=== PATIENT | male | born 1975 | race Caucasian/White ===

== ENCOUNTER 2024-04-09 11:28 | Emergency (ER) | payer OTHER ==
[2024-04-09] MEDS ORDERED: ALBUTEROL 2.5 MG/3 ML NEB SOL ONE (11:47)
[2024-04-09] MEDS ORDERED: IPRATROPIUM BROM 0.5MG/2.5ML ONE (11:47)
[2024-04-09] MEDS ORDERED: METHYLPREDNISOLONE 125 MG INJ ONE (11:47)
[2024-04-09] MEDS ORDERED: MAGNESIUM SULFATE 1 gm IVPB 1 GM/100 ML BAG IV ONE ×2 (11:48→19:27)
[2024-04-09 12:11] LABS: Absolute Basophils 0.1 K/uL (0-0.5); Absolute Eosinophils 0.4 K/uL (0-0.5); Absolute Lymphocytes (CBC) 1.6 K/uL (0.7-4.9); Absolute Monocytes 0.8 K/uL (0.1-1.3); Absolute Neutrophil 8.3 K/uL (1.8-8.0); Basophils % 0.8 % (0-1.3); Eosinophils % 3.3 % (0-4.4); Hematocrit 41.2 % (39.6-49.0); Hemoglobin 13.9 g/dL (13.6-17.9); Lymphocytes % 14.7 % (15.3-44.8); MCH 29.1 pg (27.0-35.0); MCHC 33.8 g/dL (32.0-36.0); MCV 86.1 fL (80-100); MPV 8.1 fL (7.6-11.3); Monocytes % 6.9 % (3.3-12.3); Neutrophils % 74.3 % (41.7-73.7); Nucleated Red Blood Cells % 0.1 % (0-0); Platelets 293 thou/uL (152-406); RBC Red Blood Cell Count 4.79 M/uL (4.33-5.43); Red Cell Distribution Width 14.3 % (12.1-15.2)
[2024-04-09 12:28] LABS: ALT/SGPT 51 U/L (16-61); AST/SGOT 35 U/L (15-37); Albumin 3.2 g/dL (3.4-5.0); Albumin/Globulin Ratio 0.8 (1.1-1.8); Alkaline Phosphatase 117 U/L (45-117); Anion Gap 7.5 mEq/L (5.0-15.0); BUN Blood Urea Nitrogen 10 mg/dL (7-18); Bicarbonate 24 mEq/L (21-32); Bilirubin Total 0.3 mg/dL (0.2-1.0); Globulin 3.9 g/dL (2.3-3.5); Glomerular Filtration Rate 87 ml/min (=/>90); Glucose Level 142 mg/dL (74-106); Magnesium 2.1 mg/dL (1.6-2.4); NT PRO-BNP 50 pg/mL (<125); Potassium 3.5 mEq/L (3.5-5.1); Protein, Total 7.1 g/dL (6.4-8.2); Sodium Level 138 mEq/L (136-145)
[2024-04-09 12:29] LABS: Bilirubin Direct < 0.2 mg/dL (0-0.2); Bilirubin Indirect, Calculated 0.1 mg/dL (0.2-0.8); Troponin High Sensitivity < 3.0 pg/mL (<58.9)
--- NOTE | 2024-04-09 13:34 | RAD REPORT ---
EXAMINATION: ONE VIEW CHEST XR CLINICAL INDICATION: SOB TECHNIQUE: Frontal chest projection is submitted. Examination is limited by patient positioning and t echnique. COMPARISON: No prior exam. FINDINGS: Innumerable nodular densities are seen in both lungs compatible with a miliary pattern. This can be d ue to infection or neoplasm/metastatic disease. The heart is normal in size. No displaced fractures identified. No prior studies are available at this institution for comparison.
[2024-04-09] MEDS ORDERED: LEVALBUTEROL 1.25 MG/3 ML NEB ONE ×2 (14:10→19:26)
[2024-04-09] MEDS ORDERED: LORazepam 2 MG/ML VIAL ONE (14:10)
--- NOTE | 2024-04-09 15:22 | RAD REPORT ---
EXAM: CT CHEST WITH CONTRAST CLINICAL INDICATION: dyspnea, abnormal CXR TECHNIQUE: Routine CT scan of the chest with intravenous contrast. One or more of the following dose reduction techniques were used: Automated exposure control, adjustment of the mA and/or kV according to patient size, and/or iterative reconstruction. Unless otherwise specified, incidental fi ndings do not require dedicated imaging follow-up. COMPARISON: Recent chest film reviewed FINDINGS: LUNGS: Innumerable nodules are present bilaterally of varying size in a miliary pattern. Most likely this is related to metastatic disease. Small area of groundglass opacity seen in left upper lobe anteriorly potentially alveolitis. PLEURA: No pleural effusion. No pneumothorax. MEDIASTINUM AND LYMPH NODES: No mediastinal mass or fluid collection. Normal size mediastinal, hilar, and axillary lymph nodes. OSSEOUS STRUCTURES AND CHEST WALL: Intact. UPPER ABDOMEN: Irregular pancreatic ductal dilatation partially visualized. IMPRESSION: Innumerable pulmonary nodules of varying size bilaterally distributed throughout both lungs in a tamir mahendra pattern. This would favor metastatic disease or less likely infection. Irregular pancreatic ductal dilatation noted, partially imaged. Recommend MRI/MRCP of the abdomen for further evaluation.
--- NOTE | 2024-04-09 15:51 | EDPHYS ---
Physician Documentation [facility] Name: Andriy Solis Age: 48 yrs Sex: Male : 1975 Arrival Date: 04/09/2024 Time: 11:28 Bed IW10 Private MD: ED Physician Bacilio Gottlieb HPI: 04/09 11:39 This 48 yrs old Male presents to ER via Ambulatory with complaints of Breathing sb4 Difficulty. 11:39 Patient reports progressively worsening shortness of breath x 3 weeks. He does have a sb4 history of asthma and has been using his inhaler consistently. States that he usually gets bronchitis once a year. Also reports cough. Denies any fever, chills, nausea, vomiting, sore throat, sinus congestion. 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 - Infectious Disease History:: Denies. - Social history:: Smoking status: Patient reports the use of cigarette tobacco products, smokes two packs cigarettes per day. ROS: 11:39 Constitutional: Negative for fever, chills, and weight loss, sb4 11:39 Respiratory: Positive for cough, shortness of breath, wheezing, 11:39 All other systems are negative, Exam: 11:39 Head/Face: Normocephalic, atraumatic. Eyes: Extra-ocular motions intact. Periorbital sb4 areas with no swelling, redness, or edema. ENT: Mucous membranes moist. Skin: Warm, dry with normal turgor. Normal color with no rashes, no lesions, and no evidence of cellulitis. 11:39 Constitutional: The patient appears alert, awake, uncomfortable, 11:39 Cardiovascular: Rate: tachycardic, Rhythm: regular, 11:39 Respiratory: the patient does not display signs of respiratory distress, Respirations: normal, Breath sounds: wheezing: inspiratory expiratory is scattered, Vital Signs: 11:36 BP 136 / 92; Pulse 111; Resp 20; Temp 98.4(O); Pulse Ox 100% on R/A; Weight 78.47 kg; ss Height 6 ft. 1 in. ; Pain 0/10; 13:00 BP 128 / 74; Pulse 102; Resp 20; Pulse Ox 98% on R/A; kj2 14:15 BP 126 / 100; Pulse 118; Resp 22; Pulse Ox 99% on R/A; kj2 17:40 BP 112 / 74; Pulse 104; Resp 20; Pulse Ox 98% ; kj2 20:00 BP 116 / 76; Pulse 107; Resp 20; Pulse Ox 100% on R/A; kj2 11:36 Body Mass Index 22.82 (78.47 kg, 185.42 cm) ss 11:36 Pain Scale: Adult ss MDM: 11:31 Medical Screening Exam initiated sb4 15:55 Antibiotic administration: Rocephin and Zithromax given. Data reviewed: vital signs, sb4 nurses notes, lab test result(s), EKG, radiologic studies, I have discussed the patient's presentation/case with the attending Emergency Department Physician; and as a result, I will administer antibiotics. Counseling: I had a detailed discussion with the patient and/or guardian regarding the historical points, exam findings, and any diagnostic results supporting the discharge/admit diagnosis, the presence of at least one elevated blood pressure reading (>120/80) during this emergency department visit, lab results, radiology results, the need to transfer to another facility, [facility] does not immediately have the required specialist. ED course: Patient's chest imaging is concerning for atypical pneumonia versus metastatic disease. He is still wheezing after 2 breathing treatments, Solu-Medrol, and magnesium. We do not currently have pulmonology on-call. CT also showed irregular pancreatic ductal dilatation and recommended MRCP which is not currently available. Will transfer to [facility] for higher level of care. 04/09 11:37 Order name: Basic Metabolic Panel; Complete Time: 12:30 sb4 04/09 11:37 Order name: CBC with Diff; Complete Time: 12:16 sb4 04/09 11:37 Order name: LFT's; Complete Time: 12:30 sb4 04/09 11:37 Order name: Magnesium; Complete Time: 12:30 sb4 04/09 11:37 Order name: NT PRO-BNP; Complete Time: 12:30 sb4 04/09 11:37 Order name: Troponin HS; Complete Time: 12:30 sb4 04/09 15:47 Order name: Blood Culture Adult (2) sb4 04/09 15:47 Order name: Lactate w/ 2H reflex if indic.; Complete Time: 08:51 sb4 04/09 15:47 Order name: Ptt, Activated; Complete Time: 08:51 sb4 04/09 15:47 Order name: PT-INR; Complete Time: 08:51 sb4 04/09 16:00 Order name: SARS RAPID; Complete Time: 08:51 eb 04/09 16:21 Order name: Flu; Complete Time: 08:51 sb4 04/09 16:21 Order name: Strep sb4 04/09 18:13 Order name: Ghost Lactate-NO COLLECT Timer; Complete Time: 08:51 EDMS 04/09 19:16 Order name: ABG peggy 04/09 11:37 Order name: XRAY Chest (1 view); Complete Time: 13:34 sb4 04/09 13:47 Order name: CT Chest W/ Con; Complete Time: 15:23 sb4 04/09 11:37 Order name: Cardiac monitoring; Complete Time: 12:02 sb4 04/09 11:37 Order name: EKG - Nurse/Tech; Complete Time: 12:02 sb4 04/09 11:37 Order name: IV Saline Lock; Complete Time: 12:02 sb4 04/09 11:37 Order name: Labs collected and sent; Complete Time: 12:02 sb4 04/09 11:37 Order name: O2 Per Protocol; Complete Time: 11:40 sb4 04/09 11:37 Order name: O2 Sat Monitoring; Complete Time: 11:40 sb4 04/09 16:26 Order name: Airborne Precautions; Complete Time: 16:30 sb4 EC:46 Rate is 103 beats/min. Rhythm is regular, Sinus tachycardia. [place] interval is normal at sb4 146 msec. QRS interval is normal at 78 msec. QT interval is normal at 360 msec. No Q waves. T waves are Normal. No ST changes noted. Clinical impression: Sinus tachycardia. Interpreted by me. Reviewed by me. Administered Medications: 12:02 Drug: DuoNeb Nebulize (3:1) (2.5 mg - 0.5 mg) 3 ml Nebulizer once Route: Nebulizer; kc6 12:02 Drug: MethylPrednisoLONE IVP 125 mg IVP once Route: IVP; Site: right antecubital; kc6 12:02 Drug: Magnesium Sulfate IVPB 1 grams IVPB once over 1 hrs Route: IVPB; Infused Over: 1 kc6 hrs; Site: right antecubital; 14:13 Drug: Ativan IVP 0.5 mg IVP once Route: IVP; Site: right antecubital; kj2 14:14 Drug: Levalbuterol Inhalation 1.25 mg Inhalation once Route: Inhalation; kj2 17:35 Drug: AZITHromycin IVPB 500 mg IVPB once over 1 hrs; (mix in 250 mL NS) Route: IVPB; kj2 Infused Over: 1 hrs; Site: right antecubital; 21:02 Follow up: IV Status: Completed infusion; IV Intake: 250ml kj2 17:36 Drug: Rocephin IV 1 grams IV at calculated rate once; Given slow IV push per pharmacy kj2 instructions Route: IV; Rate: calculated rate; Site: right antecubital; 21:02 Follow up: IV Status: Completed infusion; IV Intake: 10ml kj2 21:03 Follow up: Response: No adverse reaction kj2 19:58 Drug: Magnesium Sulfate IVPB 1 grams IVPB once over 1 hrs Route: IVPB; Infused Over: 1 kj2 hrs; Site: right antecubital; 21:01 Follow up: IV Status: Completed infusion; IV Intake: 100ml kj2 19:58 Drug: Levalbuterol Inhalation 2.5 mg Inhalation once Route: Inhalation; kj2 21:01 Follow up: Response: No adverse reaction kj2 Disposition: 04/10 09:44 Co-signature as Attending Physician, Bacilio Gottlieb MD I reviewed the patient's care rn provided by the Advanced Practice Provider and agree with the diagnosis and treatment plan. Disposition Summary: 04/09/24 15:50 Transfer Ordered Notes: Transfer Location: [facility] sb4 Reason: Higher level of care sb4 Condition: Fair sb4 Problem: new sb4 Symptoms: are unchanged sb4 Accepting Physician: Dr. Mazariegos(04/10/24 00:42) kj2 Diagnosis - Atypical pneumonia sb4 - Dyspnea sb4 Forms: - Medication Reconciliation Form sb4 - SBAR form sb4 Signatures: Dispatcher [employer] Marcel Urrutia MD MD cha Nieto, Roman, MD MD rn Blanchard, Enriqueta, RN RN ss Masha Rivera RN RN kc6 Michelle Mayfield PA-C PASilvino sb4 Anusha Drake RN RN kj2 Corrections: (The following items were deleted from the chart) 04/09 15:47 15:47 BLOOD CULTURE*+BA.LAB.BRZ ordered. EDMS EDMS 15:47 15:47 LACTATE+C.LAB.BRZ ordered. EDMS EDMS 15:47 15:47 PTT, ACTIVATED+COAG.LAB.BRZ ordered. EDMS EDMS 15:47 15:47 PROTIME (+INR)+COAG.LAB.BRZ ordered. EDMS EDMS 16:27 15:50 hospitalist sb4 sb4 04/10 00:42 04/09 16:27 Dr. Mazariegos sb4 kj2
--- NOTE | 2024-04-09 15:51 | ER ---
Nurse's Notes [facility] Name: Andriy Solis Age: 48 yrs Sex: Male : 1975 Arrival Date: 04/09/2024 Time: 11:28 Bed IW10 Private MD: Diagnosis: Atypical pneumonia;Dyspnea Presentation: 04/09 11:36 Chief complaint: Patient states: cough and shortness of breath x weeks. HX of asthma. ss Coronavirus screen: Client denies travel out of the [place] in the last 14 days. Ebola Screen: Patient denies exposure to infectious person. Patient denies travel to an Ebola-affected area in the 21 days before illness onset. Initial Sepsis Screen: Does the patient meet any 2 criteria? No. Patient's initial sepsis screen is negative. Does the patient have a suspected source of infection? No. Patient's initial sepsis screen is negative. Risk Assessment: Do you want to hurt yourself or someone else? Patient reports no desire to harm self or others. Onset of symptoms is unknown. 11:36 Method Of Arrival: Ambulatory ss 11:36 Acuity: TORIE 3 ss Triage Assessment: 12:15 General: Appears in no apparent distress. Behavior is calm, cooperative. Respiratory: kj2 Onset: The symptoms/episode began/occurred x >3 days. 13:21 Respiratory: Reports shortness of breath at rest the patient has mild shortness of kj2 breath. 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 - Infectious Disease History:: Denies. - Social history:: Smoking status: Patient reports the use of cigarette tobacco products, smokes two packs cigarettes per day. Screenin:03 [facility] ED Fall Risk Assessment (Adult) History of falling in the last 3 months, kc6 including since admission No falls in past 3 months (0 pts) Confusion or Disorientation No (0 pts) Intoxicated or Sedated No (0 pts) Impaired Gait No (0 pts) Mobility Assist Device Used No (0 pt) Altered Elimination No (0 pt) Score/Fall Risk Level 0 - 2 = Low Risk Oriented to surroundings, Maintained a safe environment, Educated pt \\T\\ family on fall prevention, incl call for assistance when getting out of bed. Abuse screen: Denies threats or abuse. Denies injuries from another. Nutritional screening: No deficits noted. Tuberculosis screening: No symptoms or risk factors identified. Assessment: 12:00 General: Appears in no apparent distress. Behavior is calm, cooperative. Pain: Denies kj2 pain. Neuro: Level of Consciousness is awake, alert, Oriented to person, place, time, situation. Cardiovascular: Patient's skin is warm and dry. Respiratory: Airway is patent Respiratory effort is unlabored. GI: No signs and/or symptoms were reported involving the gastrointestinal system. : No signs and/or symptoms were reported regarding the genitourinary system. 12:15 Reassessment: Patient appears in no apparent distress at this time. Patient and/or kj2 family updated on plan of care and expected duration. Pain level reassessed. Patient is alert, oriented x 3, equal unlabored respirations, skin warm/dry/pink. Cardiovascular: Rhythm is sinus rhythm. Respiratory: Reports shortness of breath at rest Breath sounds are clear bilaterally. 13:00 Reassessment: Patient appears in no apparent distress at this time. Patient and/or kj2 family updated on plan of care and expected duration. Pain level reassessed. Patient is alert, oriented x 3, equal unlabored respirations, skin warm/dry/pink. 14:00 Reassessment: Patient appears in no apparent distress at this time. Patient and/or kj2 family updated on plan of care and expected duration. Pain level reassessed. Patient is alert, oriented x 3, equal unlabored respirations, skin warm/dry/pink. 16:39 Reassessment: cultures on hold as advised by provider. kj2 17:39 Reassessment: Patient appears in no apparent distress at this time. Patient and/or kj2 family updated on plan of care and expected duration. Pain level reassessed. Patient is alert, oriented x 3, equal unlabored respirations, skin warm/dry/pink. 19:16 Reassessment: pt and family tell this nurse, "I've been here for 7hrs, I haven't eaten, kc6 and I'm still SOB and if I'm not out of here within the next hour I'm going to leave. primary RN and Dr. Guzman made aware. per pt is ok to eat. 19:29 Reassessment: patient request to start neb treatment after eating. kj2 19:59 Reassessment: Patient appears in no apparent distress at this time. Patient and/or kj2 family updated on plan of care and expected duration. Pain level reassessed. Patient is alert, oriented x 3, equal unlabored respirations, skin warm/dry/pink. 20:49 Reassessment: Patient appears in no apparent distress at this time. Patient and/or kj2 family updated on plan of care and expected duration. Pain level reassessed. Patient is alert, oriented x 3, equal unlabored respirations, skin warm/dry/pink. 21:01 Reassessment: 2049 report given. kj2 Vital Signs: 11:36 BP 136 / 92; Pulse 111; Resp 20; Temp 98.4(O); Pulse Ox 100% on R/A; Weight 78.47 kg; ss Height 6 ft. 1 in. ; Pain 0/10; 13:00 BP 128 / 74; Pulse 102; Resp 20; Pulse Ox 98% on R/A; kj2 14:15 BP 126 / 100; Pulse 118; Resp 22; Pulse Ox 99% on R/A; kj2 17:40 BP 112 / 74; Pulse 104; Resp 20; Pulse Ox 98% ; kj2 20:00 BP 116 / 76; Pulse 107; Resp 20; Pulse Ox 100% on R/A; kj2 11:36 Body Mass Index 22.82 (78.47 kg, 185.42 cm) ss 11:36 Pain Scale: Adult ss ED Course: 11:30 Patient arrived in ED. ra3 11:30 Michelle Mayfield PA-C is PHCP. sb4 11:31 Bacilio Gottlieb MD is Attending Physician. sb4 11:38 Triage completed. ss 11:38 Arm band placed on right wrist. ss 11:40 Masha Rivera, VALERIA is Primary Nurse. kc6 12:03 Patient has correct armband on for positive identification. Bed in low position. Call kc6 light in reach. Side rails up X 1. Adult w/ patient. school bus monitor on. Pulse ox on. NIBP on. Door closed. Noise minimized. Lights dimmed. Pillow given. 12:03 Inserted saline lock: 20 gauge in right antecubital area, using aseptic technique. kc6 Blood collected. Flushed with 10 mL NS. Patient maintains SpO2 saturation greater than 95% on room air. 13:24 XRAY Chest (1 view) In Process Unspecified. EDMS 15:15 CT Chest W/ Con In Process Unspecified. EDMS 15:58 initiated a transfer with Anthony from the [facility] Transfer [place]. eb 16:[address] Mazariegos the hospitalist document control manager for [facility] with Michelle Archuleta for eb patient transfer consultation. 17:36 Blood Culture Adult (2) Sent. kj2 17:36 Lactate w/ 2H reflex if indic. Sent. kj2 17:36 PT-INR Sent. kj2 17:36 Ptt, Activated Sent. kj2 17:42 Per Anthony at the [facility]/ they are still moving patients around / the hospitalist would like the patient placed into an airborne isolation room. 19:21 Diet: Patient given a regular meal tray. Tolerated well. ha1 19:[address] Mazariegos to [facility] Rm [id number]. Report [phone]. rv1 20:30 Anusha SHAW having difficulty calling report. Transfer center notified. rv1 21:00 Gerri with [facility] gave 15-20 ETA. rv1 21:00 No provider procedures requiring assistance completed. kj2 21:30 Provided Education on: need for transfer. kj2 21:30 Patient transferred, IV remains in place. kj2 Administered Medications: 12:02 Drug: DuoNeb Nebulize (3:1) (2.5 mg - 0.5 mg) 3 ml Nebulizer once Route: Nebulizer; kc6 12:02 Drug: MethylPrednisoLONE IVP 125 mg IVP once Route: IVP; Site: right antecubital; kc6 12:02 Drug: Magnesium Sulfate IVPB 1 grams IVPB once over 1 hrs Route: IVPB; Infused Over: 1 kc6 hrs; Site: right antecubital; 14:13 Drug: Ativan IVP 0.5 mg IVP once Route: IVP; Site: right antecubital; kj2 14:14 Drug: Levalbuterol Inhalation 1.25 mg Inhalation once Route: Inhalation; kj2 17:35 Drug: AZITHromycin IVPB 500 mg IVPB once over 1 hrs; (mix in 250 mL NS) Route: IVPB; kj2 Infused Over: 1 hrs; Site: right antecubital; 21:02 Follow up: IV Status: Completed infusion; IV Intake: 250ml kj2 17:36 Drug: Rocephin IV 1 grams IV at calculated rate once; Given slow IV push per pharmacy kj2 instructions Route: IV; Rate: calculated rate; Site: right antecubital; 21:02 Follow up: IV Status: Completed infusion; IV Intake: 10ml kj2 21:03 Follow up: Response: No adverse reaction kj2 19:58 Drug: Magnesium Sulfate IVPB 1 grams IVPB once over 1 hrs Route: IVPB; Infused Over: 1 kj2 hrs; Site: right antecubital; 21:01 Follow up: IV Status: Completed infusion; IV Intake: 100ml kj2 19:58 Drug: Levalbuterol Inhalation 2.5 mg Inhalation once Route: Inhalation; kj2 21:01 Follow up: Response: No adverse reaction kj2 Medication: 12:15 VIS not applicable for this client. kj2 Intake: 21:01 IV: 100ml; Total: 100ml. kj2 21:02 IV: 250ml; Total: 350ml. kj2 21:02 IV: 10ml; Total: 360ml. kj2 Outcome: 15:50 ER care complete, transfer ordered by . sb4 21:25 Transferred by [facility] to [facility], kj2 21:25 Condition: stable 21:25 Instructed on the need for transfer, 04/10 00:42 Patient left the ED. kj2 Signatures: Dispatcher [employer] EDMS Enriqueta Dove RN RN Yasmin Coello Heidy RN RN ha1 Masha Rivera RN RN [id number] Michelle Mayfield, PA-C PA-C sb4 Ynes Aguilera rv1 Sulema Pacheco ra3 Anusha Drake RN RN kj2 Corrections: (The following items were deleted from the chart) 04/09 23:21 21:15 Ana Maria with EMS gave 15 min ETA rv1 rv1
[2024-04-09] MEDS ORDERED: CEFTRIAXONE 1000 MG/VIAL ONE (17:28)
[2024-04-09] MEDS ORDERED: AZITHROMYCIN 500 MG INJ IVPB ONE (17:28)
[2024-04-09] MEDS ORDERED: NA CHLORIDE 0.9% 250 ML ONE (17:29)
[2024-04-09 18:08] LABS: PT Prothrombin Time 11.2 SECONDS (9.4-12.5); PTT, Activated Partial Thromb 30.8 SECONDS (24.3-36.9); Protime INR 1.07
[2024-04-09 19:14] LABS: SARS-CoV-2 Antigen CONTROL BLUE LINE VIS/BG OK; SARS-CoV-2 Antigen Rapid Res Negative (Negative)
[2024-04-09] MEDS ORDERED: NA CHLORIDE 0.9% 500 ML ONE (19:49)
[2024-04-10 00:49] VITALS: TEMP 98.4
[2024-04-10 00:54] VITALS: BP 116/76; O2SAT 100
--- NOTE | 2024-04-11 12:48 | EKG ---
Test Date: 2024-04-09 Test Time: 11:44:12 Typewriter Assembler: RITA MEASUREMENT RESULTS: Intervals: Rate: 103 SC: 146 QRSD: 78 QT: 360 QTc: 471 [place]: P: 67 SC: 146 QRS: 66 T: 48 INTERPRETIVE STATEMENTS: Sinus tachycardia Otherwise normal ECG No previous ECG available for comparison Electronically Signed On 04-11-24 12:43:07 [employer] by Graham Mcgowan
== END 2024-04-10 00:42 | disposition short-term general hospital (02) ==
LOC: ER 11:28
DX: J18.9 Pneumonia, unspecified organism (principal); Z11.52 Encounter for screening for COVID-19; F17.210 Nicotine dependence, cigarettes, uncomplicated
CPT/HCPCS: 93005; 87040 ×2; 87070; 85025; 80048; 36415; 83735; 85610; 80076; 87081; 83605; 85730; 84484; 83880; 87804 ×2; 71260; 71045; 87811; Q9967; J3475 ×2; J7614 ×2; J7613; J7644; J2919; J7050; J7040; J0696; 96365; 96366; 96367; 96368; 96375; 99285